=== PATIENT | male | born 1990 | race Two or more races ===

== ENCOUNTER 2024-07-12 19:13 | Emergency (ER) | payer OTHER, SELFPAY ==
[2024-07-12 19:23] VITALS: BP 132/90; PULSE 82; RESP 18; TEMP 36.7; O2SAT 99; BMI 26.6
--- NOTE | 2024-07-12 19:30 | XRR_ITS ---
PROCEDURE INFORMATION: Exam: XR Left Hand Exam date and time: 07/12/2024 7:47 PM Age: 33 years old Clinical indication: Injury or trauma; Crushing; Hand; Left; Additional info: Left thumb crush injury TECHNIQUE: Imaging protocol: Radiologic exam of the left hand. Views: 3 or more views. COMPARISON: No relevant prior studies available. FINDINGS: Bones/joints: Suspected nondisplaced fracture of the base of the 1st distal phalanx. No dislocation. Soft tissues: Mild soft tissue swelling in the distal thumb. XR/XR hand LT min 3V* [id number] IMPRESSION: Suspected nondisplaced fracture of the base of the 1st distal phalanx. Consider short interval radiographic follow-up in 7-10 days to document stability.
--- NOTE | 2024-07-12 19:39 | ED_ITS ---
HPI - Extremity Problem General: Chief complaint: Extremity Injury, Upper Stated complaint: Left thumb/ hand inj Time Seen by Provider: 07/12/24 19:30 Source: patient Mode of arrival: ambulatory Limitations: language barrier History of Present Illness: Patient is a 33-year-old male who presents the emergency department after a left thumb injury occurred prior to arrival. There is limitation of the history and physical secondary to patient's primary language being Romansh, cannot speak much Yoruba. However he tells me that during his job he hyperextended his left thumb while also having it smashed between a wall and a ladder. He has never fractured this hand or had any previous injuries. Pain is primarily reported over the first MCP joint, he is not reporting any extension of the pain into the hand. Pain does extend somewhat distally, however no sensory changes are reported. He states that he did not take anything for pain yet. He is right- hand dominant. MD Complaint: extremity pain (left thumb) Onset (ago): minute(s) Pain Consistency: constant Radiation: distal Exacerbating factors: range of motion Associated symptoms: Deny chest pain, fever(s) or rash Review of Systems General: Reports: 10 or more systems reviewed and unremarkable except in HPI and below Const: Denies: fever(s) or chills Card: Denies: chest pain Resp: Denies: dyspnea or productive cough GI: Denies: abdominal pain, nausea, vomiting or diarrhea : Denies: flank pain Musc: Reports: extremity pain (left thumb), joint pain (left 1st MCP) and limited range of motion (left thumb); Denies: neck pain, back pain, extremity swelling, joint swelling, joint redness, joint warmth or muscle weakness Skin/Breast: Denies: rash Neuro: Denies: headache(s), numbness in extremities or weakness in extremities Physical Exam Const: COMMON NORMALS: no acute distress, patient oriented x3, healthy appearing, alert and well nourished EXAM LIMITATIONS: language barrier HENMT: COMMON NORMALS: normocephalic and atraumatic HEAD & SCALP: normocephalic and atraumatic Neck/C-Spine: COMMON NORMALS: full ROM, supple and no meningeal signs Extremity: COMMON NORMALS: full ROM, capillary refill normal and no joint enlargement NARRATIVE EXTREMITY EXAM: Reproducible tenderness to palpation of the left first MCP joint. Minimal swelling noted. Limited range of motion actively and passively of the left thumb, worse with opposition. No open wounds. No bruising. Neuro: COMMON NORMALS: patient oriented x3, moves all extremities, no focal motor deficits and no sensory deficits noted SENSORIUM/ORIENTATION: Yes alert MENINGEAL SIGNS: Yes no meningeal signs Skin: COMMON NORMALS: no rashes or lesions noted GENERAL SKIN EXAM: no rashes or lesions noted Course Vital Signs: Vital signs: Vital Signs Temperature 98.1 F 07/12/24 19:23 Pulse Rate 82 07/12/24 19:54 Respiratory Rate 18 07/12/24 19:23 Blood Pressure 126/91 07/12/24 19:54 Pulse Oximetry 98 07/12/24 19:54 Oxygen Delivery Me thod Room Air 07/12/24 19:54 MDM - Extremity (Nontraumatic) Medical Decision Making At his thumb while working, there was somewhat limitation from the language barrier but was able to tell me he smashed it between a ladder and a wall, also there was a hyperextension injury. X-ray showing what was thought to be suspec gavino nondisplaced fracture of the distal phalanx of the left first finger. We will put in frog splint and wrapped in [place], and discharge instructions provided in Romansh to help patient monitor his condition and how to treat. He will also follow-up with primary care for repeat x-ray if his symptoms do not improve. Lab Data Radiology Impressions Hand X-Ray 07/12/24 19:30 IMPRESSION: Suspected nondisplaced fracture of the base of the 1st distal phalanx. Consider short interval radiographic follow-up in 7-10 days to document stability. All radiology interpretation(s) finalized by discharge Discharge Plan Discharge Patient Disposition: Home Clinical Impression: Distal phalanx or phalanges, closed fracture Qualifiers: Encounter type: initial encounter Finger: thumb Fracture alignment: nondisplaced Laterality: left Qualified Code(s): S62.525A - Nondisplaced fracture of distal phalanx of left thumb, initial encounter for closed fracture Condition: Stable Discharge Orders: Discharge ED (Routine); Ordered 07/12/24 Ordered By: Darell Chapin Patient Instructions: Fractures - Phalanx (Finger) Activity Restrictions/Additional Instructions: Consulte las instrucciones para el paciente para obtener m?s informaci?n. Mantenga bailey pulgar vendado e inmovilizado. Seguimiento con atenci?n primaria en garrett semana para reevaluaci?n y potencialmente garrett nueva radiograf?a. Hielo. [place] Tylenol e ibuprofeno para el dolor. Regrese con cualquier novedad o empeoramiento. Coding Level of Care Code ED Dry Drug Worker for Jacobo Romano
[2024-07-12] MEDS: ibuprofen 600 mg Tablet PO (19:53)
[2024-07-12 19:54] VITALS: BP 126/91; PULSE 82; O2SAT 98
[2024-07-12 21:07] VITALS: BP 116/71; PULSE 75; O2SAT 98
== END 2024-07-12 21:09 | disposition home or self-care (01) ==
PROVIDERS: Emergency Provider Physician Assistant
DX: S62.525A Nondisplaced fracture of distal phalanx of left thumb, initial encounter for closed fracture (principal); W23.0XXA Caught, crushed, jammed, or pinched between moving objects, initial encounter
CPT/HCPCS: 73130; 99283